=== PATIENT | male | born 1970 | race Caucasian/White ===

== ENCOUNTER 2016-11-27 17:51 | Inpatient (IN) | payer OTHER ==
[2016-11-27 20:02] LABS: Urine Bilirubin Negative (Negative); Urine Glucose Negative (Negative); Urine Nitrite Negative (Negative)
[2016-11-27 20:19] LABS: Benzodiazepine Urine Screen None Detected (None Detect)
[2016-11-27 20:36] LABS: Hematocrit 47 % (42-52); Hemoglobin 15.9 g/dl (14.0-18.0); Mean Corpuscular HGB Conc 34 g/dl (31-36); Mean Corpuscular Hemoglobin 32 pg (27-31); Mean Corpuscular Volume 93 fL (80-94); Mean Platelet Volume 9 um3 (7.4-10.4); Red Cell Distribution Width 13 % (10.5-15); White Blood Count 8.3 10^3/ul (3.5-10.8)
[2016-11-27 20:38] LABS: Add Diff/Slide Review? Slide Review Added; Comments Flag Yes
[2016-11-27 20:47] LABS: ALT 14 U/L (7-52); AST 23 U/L (13-39); Acetaminophen < 15 mcg/mL; Albumin 5.1 g/dL (3.2-5.2); Alcohol < 10 mg/dL (<10); Alkaline Phosphatase 57 U/L (34-104); Anion Gap 11 mmol/L (2-11); BUN/Creatinine Ratio 12.4 (8-20); Blood Urea Nitrogen 12 mg/dL (6-24); CO2 Carbon Dioxide 23 mmol/L (22-32); Calcium 10.2 mg/dL (8.6-10.3); Chloride 101 mmol/L (101-111); EGFR African American 107.6 (>60); EGFR Non-African American 83.7 (>60); Globulin 2.6 g/dL (2-4); Glucose 82 mg/dL (70-100); Salicylate < 2.50 mg/dL (<30); Sodium 135 mmol/L (133-145); Total Protein 7.7 g/dL (6.4-8.9)
[2016-11-27 20:58] LABS: TSH (Thyroid Stimulating Horm) 0.92 mcIU/mL (0.34-5.60)
--- NOTE | 2016-11-27 21:03 | ED ---
Psychiatric Complaint - HPI Summary HPI Summary: Patient presents with SI for many years, but worsening this week.. No addition of stress. He notes to having psychiatrist in the past, but was only on mediation briefly and denies any medication currently. Denies drug use, ETOH. Denies plan at this time. He states the only reason he has not committed suicide is d/t his 4 yo daughter. Endorses HI, but states it is in the heat of the moment, and has never acted upon them. Denies previous attempts. He states he is currently not a threat but would like help and would like a psychiatrist to speak with him. He notes to anger issues, and is also expressing request for help with that as well. - History Of Current Complaint Chief Complaint: [facility]entalHealth Time Seen by Provider: 11/27/16 18:21 Hx Obtained From: Patient Onset/Duration: Gradual Onset Timing: Constant Severity Initially: Moderate Severity Currently: Severe Character: Angry Aggravating Factor(s): Nothing Alleviating Factor(s): Nothing Associated Signs And Symptoms: Positive: Negative Related History: Positive For: Prior Psychiatric Issues Has Suicidal: Reports: Thoughts Has Homicidal: Reports: Thoughts - Risk Factor(s) Completed Suicide Risk Factors: Male, [place] - Allergies/Home Medications Allergies/Adverse Reactions: Allergies Allergy/AdvReac Type Severity Reaction Status Date / Time No Known Allergies Allergy Verified 11/27/16 17:58 PMH/Surg Hx/FS Hx/Imm Hx Previously Healthy: Yes - Immunization History Date of Tetanus Vaccine: unk Date of Influenza Vaccine: none Hx Pertussis Vaccination: No Immunizations Up to Date: Unable to Obtain/Confirm Infectious Disease History: Yes Infectious Disease History: Denies: Traveled Outside the [place] in Last 30 Days - Social History Occupation: Employed Full-time Lives: With Family Alcohol Use: Rare Alcohol Amount: drank heavily past 2 days Hx Substance Use: Yes Substance Use Type: Reports: Marijuana Substance Use Comment - Amount & Last Used: once a month Hx Tobacco Use: No Smoking Status (MU): Former Smoker Review of Systems Constitutional: Negative Eyes: Negative Cardiovascular: Negative Respiratory: Negative Positive: no symptoms reported, see HPI Musculoskeletal: Negative Positive: Anxious, Depressed All Other Systems Reviewed And Are Negative: Yes Physical Exam Triage Information Reviewed: Yes Vital Signs On Initial Exam: Initial Vitals Temp Pulse Resp BP Pulse Ox 98.3 F 95 16 100/77 95 11/27/16 17:58 07/16/17 17:58 11/27/16 17:58 11/27/16 17:58 11/27/16 17:58 Vital Signs Reviewed: Yes Appearance: Positive: Well-Appearing, Well-Nourished Skin: Positive: Warm, Skin Color Reflects Adequate Perfusion Head/Face: Positive: Normal Head/Face Inspection Eyes: Positive: EOMI, NESTOR, Conjunctiva Clear Neck: Positive: Supple Respiratory/Lung Sounds: Positive: Clear to Auscultation, Breath Sounds Present Cardiovascular: Positive: Normal, RRR, Pulses are Symmetrical in both Upper and Lower Extremities Musculoskeletal: Positive: Normal, Strength/ROM Intact Neurological: Positive: Sensory/Motor Intact, Alert, Oriented to Person Place, Time Psychiatric: Positive: Affect/Mood Appropriate AVPU Assessment: Alert Diagnostics - Vital Signs Vital Signs Temp Pulse Resp BP Pulse Ox 11/27/16 17:58 98.3 F 95 16 100/77 95 - Laboratory Lab Results: Lab Results 11/27/16 11/27/16 11/27/16 Range/Units 19:50 19:50 20:25 WBC 8.3 (3.5-10.8) 10^3/ul RBC 5.00 (4.0-5.4) 10^6/ul Hgb 15.9 (14.0-18.0) g/dl Hct 47 (42-52) % MCV 93 (80-94) fL MCH 32 H (27-31) pg MCHC 34 (31-36) g/dl RDW 13 (10.5-15) % Plt Count 231 (150-450) 10^3/ul MPV 9 (7.4-10.4) um3 Neut % (Auto) 70.6 (38-83) % Lymph % (Auto) 21.2 L (25-47) % [place] % (Auto) 7.0 (1-9) % Eos % (Auto) 0.6 (0-6) % Baso % (Auto) 0.6 (0-2) % Absolute Neuts (auto) 5.9 (1.5-7.7) 10^3/ul Absolute Lymphs (auto) 1.8 (1.0-4.8) 10^3/ul Absolute Monos (auto) 0.6 (0-0.8) 10^3/ul Absolute Eos (auto) 0 (0-0.6) 10^3/ul Absolute Basos (auto) 0.1 (0-0.2) 10^3/ul Absolute Nucleated RBC 0.01 10^3/ul Nucleated RBC % 0.1 Sodium (133-145) mmol/L Potassium (3.5-5.0) mmol/L Chloride (101-111) mmol/L Carbon Dioxide (22-32) mmol/L Anion Gap (2-11) mmol/L BUN (6-24) mg/dL Creatinine (0.67-1.17) mg/dL Est GFR ( Amer) (>60) Est GFR (Non-Af Amer) (>60) BUN/Creatinine Ratio (8-20) Glucose (70-100) mg/dL Calcium (8.6-10.3) mg/dL Total Bilirubin (0.2-1.0) mg/dL AST (13-39) U/L ALT (7-52) U/L Alkaline Phosphatase (34-104) U/L Total Protein (6.4-8.9) g/dL Albumin (3.2-5.2) g/dL Globulin (2-4) g/dL Albumin/Globulin Ratio (1-3) TSH Urine Color Yellow Urine Appearance Clear Urine pH 5.0 (5-9) Ur Specific [place] 1.012 (1.010-1.030) Urine Protein Negative (Negative) Urine Ketones 1+ H (Negative) Urine Blood Negative (Negative) Urine Nitrate Negative (Negative) Urine Bilirubin Negative (Negative) Urine Urobilinogen Negative (Negative) Ur Leukocyte Esterase Negative (Negative) Urine Glucose Negative (Negative) Salicylates (<30) mg/dL Urine Opiates Screen None detected (None Detect) Acetaminophen mcg/mL Ur Barbiturates Screen None detected (None Detect) Ur Phencyclidine Scrn None detected (None Detect) Ur Amphetamines Screen None detected (None Detect) U Benzodiazepines Scrn None detected (None Detect) Urine Cocaine Screen None detected (None Detect) U Cannabinoids Screen None detected (None Detect) Serum Alcohol (<10) mg/dL 11/27/16 Range/Units 20:25 WBC (3.5-10.8) 10^3/ul RBC (4.0-5.4) 10^6/ul Hgb (14.0-18.0) g/dl Hct (42-52) % MCV (80-94) fL MCH (27-31) pg MCHC (31-36) g/dl RDW (10.5-15) % Plt Count (150-450) 10^3/ul MPV (7.4-10.4) um3 Neut % (Auto) (38-83) % Lymph % (Auto) (25-47) % [place] % (Auto) (1-9) % Eos % (Auto) (0-6) % Baso % (Auto) (0-2) % Absolute Neuts (auto) (1.5-7.7) 10^3/ul Absolute Lymphs (auto) (1.0-4.8) 10^3/ul Absolute Monos (auto) (0-0.8) 10^3/ul Absolute Eos (auto) (0-0.6) 10^3/ul Absolute Basos (auto) (0-0.2) 10^3/ul Absolute Nucleated RBC 10^3/ul Nucleated RBC % Sodium 135 (133-145) mmol/L Potassium 4.0 (3.5-5.0) mmol/L Chloride 101 (101-111) mmol/L Carbon Dioxide 23 (22-32) mmol/L Anion Gap 11 (2-11) mmol/L BUN 12 (6-24) mg/dL Creatinine 0.97 (0.67-1.17) mg/dL Est GFR ( Amer) 107.6 (>60) Est GFR (Non-Af Amer) 83.7 (>60) BUN/Creatinine Ratio 12.4 (8-20) Glucose 82 (70-100) mg/dL Calcium 10.2 (8.6-10.3) mg/dL Total Bilirubin 1.30 H (0.2-1.0) mg/dL AST 23 (13-39) U/L ALT 14 (7-52) U/L Alkaline Phosphatase 57 (34-104) U/L Total Protein 7.7 (6.4-8.9) g/dL Albumin 5.1 (3.2-5.2) g/dL Globulin 2.6 (2-4) g/dL Albumin/Globulin Ratio 2.0 (1-3) TSH Pending Urine Color Urine Appearance Urine pH (5-9) Ur Specific [place] (1.010-1.030) Urine Protein (Negative) Urine Ketones (Negative) Urine Blood (Negative) Urine Nitrate (Negative) Urine Bilirubin (Negative) Urine Urobilinogen (Negative) Ur Leukocyte Esterase (Negative) Urine Glucose (Negative) Salicylates < 2.50 (<30) mg/dL Urine Opiates Screen (None Detect) Acetaminophen < 15 mcg/mL Ur Barbiturates Screen (None Detect) Ur Phencyclidine Scrn (None Detect) Ur Amphetamines Screen (None Detect) U Benzodiazepines Scrn (None Detect) Urine Cocaine Screen (None Detect) U Cannabinoids Screen (None Detect) Serum Alcohol < 10 (<10) mg/dL Result Diagrams: 11/27/16 20:25 11/27/16 20:25 Lab Statement: Any lab studies that have been ordered have been reviewed, and results considered in the medical decision making process. Course/Dx - Course Course Of Treatment: Patient arrives for evaluation of SI/HI. He denies pain. He endorses recent ETOH use x 2 days, but otherwise denies for several months. Denies drug use. He is currently not taking psych meds and is not seeing a therapist. - Differential Dx/Clinical Impression Differential Diagnosis/HQI/PQRI: Positive: Bipolar Disorder, Suicide Attempt, Suicidal Ideation, Suicidal Gesture Provider Diagnosis: Suicidal ideation Discharge - Discharge Plan Condition: Improved Disposition: ADMITTED TO [facility]
[2016-11-27] MEDS ORDERED: diPHENhydraMINE PO* 50 MG PO ONE (23:02)
[2016-11-28] MEDS ORDERED: Nicotine Inhaler* 10 MG AMP INH PRN (04:36)
[2016-11-28] MEDS ORDERED: Al Hydrox/Mg Hydrox/Simet LIQ* 30 ML UDC PO PRN (04:36)
[2016-11-28] MEDS ORDERED: Acetaminophen TAB* 325 MG PO PRN (04:36)
[2016-11-28] MEDS ORDERED: chlorproMAZINE TAB* 50 MG Q6H PRN AGITATION PO (04:36)
[2016-11-28] MEDS ORDERED: Nicotine GUM* 2 MG PO PRN (04:36)
[2016-11-28] MEDS: Vitamin THERAPEUTIC TAB PO SCH (10:11)
[2016-11-28] MEDS: Mouth Piece, Nicotine* 1 EACH CARTRIDGE INH SCH (10:11)
[2016-11-28] MEDS: Nicotine PATCH 21 MG/24 HR* PATCH TRANSDERM SCH (10:12)
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
[2016-11-28] MEDS: Nicotine Patch Removal NOTE PATCH OFF SCH (20:16)
[2016-11-28] MEDS ORDERED: LORazepam TAB(*) 1 MG PO ONE (21:19)
[2016-11-28] MEDS: Gabapentin CAP(*) 300 MG PO SCH (22:06)
[2016-11-29] MEDS: Nicotine PATCH 21 MG/24 HR* PATCH TRANSDERM SCH (09:05)
[2016-11-29] MEDS: Gabapentin CAP(*) 100 MG PO SCH (09:52)
[2016-11-29] MEDS: LORazepam TAB(*) 1 MG PO SCH (09:53)
[2016-11-29] MEDS: Vitamin THERAPEUTIC TAB PO SCH (09:53)
[2016-11-29] MEDS: Venlafaxine EXT RELEASE CAP* 75 MG PO SCH (09:53)
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
[2016-11-29] MEDS: Gabapentin CAP(*) 300 MG PO SCH (20:22)
[2016-11-29] MEDS: Nicotine Patch Removal NOTE PATCH OFF SCH (20:24)
[2016-11-30] MEDS: Vitamin THERAPEUTIC TAB PO SCH (09:54)
[2016-11-30] MEDS: Venlafaxine EXT RELEASE CAP* 75 MG PO SCH (09:55)
[2016-11-30] MEDS: Gabapentin CAP(*) 100 MG PO SCH (09:55)
[2016-11-30] MEDS: LORazepam TAB(*) 1 MG PO SCH (09:56)
[2016-11-30] MEDS: Mouth Piece, Nicotine* 1 EACH CARTRIDGE INH SCH (09:57)
[2016-11-30] MEDS: Nicotine PATCH 21 MG/24 HR* PATCH TRANSDERM SCH (12:22)
[2016-11-30] MEDS ORDERED: LORazepam TAB(*) 1 MG PO ONE (17:02)
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
[2016-11-30] MEDS ORDERED: Gabapentin CAP(*) 300 MG PO SCH (21:00)
[2016-11-30] MEDS: Nicotine Patch Removal NOTE PATCH OFF SCH (21:04)
[2016-12-01 07:27] VITALS: BP 115/71
[2016-12-01] MEDS ORDERED: Gabapentin CAP(*) 300 MG PO SCH (09:00)
[2016-12-01] MEDS: Venlafaxine EXT RELEASE CAP* 75 MG PO SCH (09:21)
[2016-12-01] MEDS: Vitamin THERAPEUTIC TAB PO SCH (09:21)
[2016-12-01] MEDS: Nicotine PATCH 21 MG/24 HR* PATCH TRANSDERM SCH (09:21)
[2016-12-01] MEDS: LORazepam TAB(*) 1 MG PO SCH ×2 (09:21→10:46)
--- NOTE | 2016-12-01 14:11 | DS ---
Subjective - Subjective Service Types: 32684 Hosp DC Day Mgmt simple under 30 min Treatment Course & Assessment Inpatient DSM-IV Dx: 1. Bipolar 2 d/o, MRE depressed w/o PFs Discharge Planning - Discharge Planning Discharge Planning: Prescriptions provided for discharge [] Yes [] No Follow up care details as per social work arrangements. Patient response to discharge plan: [] eager for discharge [] agreeable with discharge plan [] ambivalent about discharge [] disagrees with discharge today
== END 2016-12-01 13:45 | disposition home or self-care (01) | DRG 753 ==
LOC: ED 17:51 → BSU 11-28 03:09
PROVIDERS: ADMIT Psychiatry & Neurology Psychiatry; ATTEND Psychiatry & Neurology Psychiatry
DX: F31.81 Bipolar II disorder (principal); R45.851 Suicidal ideations; F10.10 Alcohol abuse, uncomplicated; F12.10 Cannabis abuse, uncomplicated; Z81.8 Family history of other mental and behavioral disorders; Z91.5 Personal history of self-harm; Z87.891 Personal history of nicotine dependence
CPT/HCPCS: 36415; 80053; 80307; 80320; 80329; 81003; 84443; 85025; 87641; 99222; 99231; 99238; A9270-GY; G0480